=== PATIENT | male | born 1990 | race Caucasian/White ===

== ENCOUNTER → 2021-02-25 10:34 | Outpatient (BNVA) | payer OTHER, SELFPAY | PROVIDERS: PCP Hospitalist; Visit Provider Internal Medicine | DX: M22.2X2 Patellofemoral disorders, left knee (principal) | CPT/HCPCS: 73564; 99203 ==

== ENCOUNTER → 2021-03-04 12:54 | Outpatient (BNVA) | payer OTHER, SELFPAY | PROVIDERS: PCP Hospitalist; Visit Provider Internal Medicine | DX: M22.2X2 Patellofemoral disorders, left knee (principal) | CPT/HCPCS: 99213 ==